=== PATIENT | female | born 1995 | race Caucasian/White ===

== ENCOUNTER 2018-10-28 19:20 | Outpatient (CLI) | payer OTHER ==
[~2018-10-28] VITALS: Ht 157.5 cm; Wt 78.9 kg
[2018-10-28 19:38] VITALS: BP 142/70
[2018-10-28] MEDS ORDERED: PRENTAB9 PO (19:52)
[2018-10-28 21:13] VITALS: BP 145/79
== END 2018-10-28 21:15 | disposition home or self-care (01) ==
LOC: M LDO 19:20
PROVIDERS: ATTEND Obstetrics & Gynecology
DX: O26.893 Other specified pregnancy related conditions, third trimester (principal); R10.9 Unspecified abdominal pain; Z3A.32 32 weeks gestation of pregnancy
CPT/HCPCS: 59025; G0378; G0463